=== PATIENT | female | born 1980 | race Two or more races ===

== ENCOUNTER 2024-02-20 07:38 | Emergency (ER) | payer MEDICAID ==
[~2024-02-20] VITALS: Ht 165.1 cm; Wt 79.2 kg
[2024-02-20 08:10] VITALS: BP 126/75; PULSE 71; RESP 18; TEMP 97.9; O2SAT 97
[2024-02-20 08:35] LABS: Urine Bacteria FEW /hpf (None Seen); Urine Blood Negative /uL (Negative); Urine Budding Yeast OCCASIONAL /hpf (None Seen); Urine Clarity Hazy (Clear); Urine Color Light-Yellow (Yellow); Urine Protein, UAD Negative (Negative); Urine Specific Gravity 1.014 (1.001-1.035); Urine Urobilinogen Normal (Negative); Urine WBC 4 /hpf (0 - 5)
[2024-02-20] MEDS ORDERED: NITR-87 PO (08:59)
[2024-02-20] MEDS ORDERED: NAPR-746 PO (08:59)
[2024-02-20] MEDS: KETOROLAC TROMETH 30 MG/ML 1ML VIAL IM ONE (09:12)
== END 2024-02-20 09:27 | disposition home or self-care (01) ==
LOC: ER 07:38
DX: M54.2 Cervicalgia (principal); N39.0 Urinary tract infection, site not specified; Z88.6 Allergy status to analgesic agent
CPT/HCPCS: 81001; 96372; 99283; J1885

== ENCOUNTER 2024-02-22 17:54 | Emergency (ER) | payer MEDICAID ==
[~2024-02-22] VITALS: Ht 165.1 cm; Wt 79.3 kg
[~2024-02-22 17:54] MED LIST: NAPR-746 PO; NITR-87 PO
[2024-02-22 18:15] VITALS: BP 111/75; PULSE 74; RESP 16; O2SAT 97
[2024-02-22] MEDS: KETOROLAC TROMETH 60MG/2ML VIAL IM ONE (21:36)
[2024-02-22] MEDS: FLUCONAZOLE 100 MG TAB PO ONE (21:36)
[2024-02-22] MEDS ORDERED: HYDR-4902 PO (21:36)
[2024-02-22] MEDS ORDERED: CYCL-837 PO (21:36)
[2024-02-22 21:50] LABS: Urine Bacteria FEW /hpf (None Seen); Urine Blood Negative /uL (Negative); Urine Clarity Turbid (Clear); Urine Color Light-Yellow (Yellow); Urine Mucus FEW (None Seen); Urine Protein, UAD TRACE (Negative); Urine Specific Gravity 1.024 (1.001-1.035); Urine Urobilinogen Normal (Negative); Urine WBC 2 /hpf (0 - 5); Urine pH 5.5 (5.0-9.0)
[2024-02-22] MEDS ORDERED: CEPH500C PO (21:53)
== END 2024-02-22 22:00 | disposition home or self-care (01) ==
LOC: ER 17:54
DX: S16.1XXA Strain of muscle, fascia and tendon at neck level, initial encounter (principal); B37.9 Candidiasis, unspecified; N39.0 Urinary tract infection, site not specified; Z88.8 Allergy status to other drugs, medicaments and biological substances; Z79.899 Other long term (current) drug therapy; X58.XXXA Exposure to other specified factors, initial encounter; Y93.89 Activity, other specified; Y92.89 Other specified places as the place of occurrence of the external cause; Y99.8 Other external cause status
CPT/HCPCS: 81001; 96372; 99283; J1885